=== PATIENT | female | born 1985 | race Caucasian/White ===

== ENCOUNTER 2016-10-26 07:20 | Inpatient (IN) | payer OTHER ==
[2016-10-26] MEDS ORDERED: DEXTROSE 5%-LACTATED RINGERS 1,000 ML IV SCH (08:30)
[2016-10-26] MEDS ORDERED: OXYTOCIN 15 UNITS/ LR 250 ML 250 ML IVPB SCH (08:30)
[2016-10-26] MEDS ORDERED: PROMETHAZINE HCL 25 MG/1 ML VIAL IVPUSH PRN (09:09)
[2016-10-26] MEDS ORDERED: BUTORPHANOL TARTRATE 1 MG/ML VIAL IVPB PRN (09:09)
[2016-10-26 09:13] VITALS: BMI 37.2
[2016-10-26 09:19] LABS: BASOPHIL 0.2 % (0-2.0); MCH 28.8 pg (25.7-33.7); MCHC 33.7 g/dl (32.0-36.0); MEAN CELL VOLUME 85.5 fl (80-96); MEAN PLT VOLUME 7.1 fl (7.5-11.1); NEUTROPHILS 72.2 % (42.8-82.8); PLATELET COUNT 199 K/MM3 (134-434); RDW 15.4 % (11.6-15.6); WHITE BLOOD COUNT 12.4 K/mm3 (4.0-10.0)
--- NOTE | 2016-10-26 09:24 | HP ---
Past Medical History - Primary Care Physician PCP:: Ana Rae - Admission Chief Complaint: 31 yrs , 41.1 weeks iup SROM since 6.00am . c/o cramps. postterm pregn monitored by NST reactive & BPP on 10/25/16 (Report 41 wks, 81%tile, EFW 3795gm=8'6', Shweta 13.07, Bpp8/8 ) History of Present Illness: PNC transferred from [facility] to [address] [place] [address] at 21 weeks gestation . wt gain 30 lbs work up : B Pos, Rpr nr, Hbsag neg, Rubella immune, Quantiferon neg, Hiv neg: , Pngt 115, Gbs neg , pap NILM . Sono By MFM were done for growth course uneventful History Source: Patient, Medical Record Limitations to Obtaining History: No Limitations - Past Medical History CONTENT COORDINATOR: No: Migraine, Seizure Cardiovascular: No: HTN, Murmur Pulmonary: No: Asthma Gastrointestinal: No: Hemorrhoids Renal/: No: UTI Reproductive: Yes: Ectopic (2004) ...: 7 ...Para: 2 ...Term: 1 (11/03/07 41 wks, Induction of labor, 8'9') ...: 1 (08/09/04 32 wks 2'2' ) ...Spon : 1 ...Induced : 3 (last ab 2015) ...LMP: 01/11/16 ... Weeks Gestation by Dates: 41.2 ...EDC by Dates: 10/17/16 ...EDC by Sono: 10/18/16 Heme/Onc: Yes: Anemia. No: Sickle Cell Trait Infectious Disease: No: HIV, STD's Psych: No: Addictions, Anxiety, Bipolar, Depression Endocrine: No: Diabetes Mellitus, Hyperthyroidism, Hypothyroidism - Past Surgical History Past Surgical History: Yes: None Hx Myomectomy: No Hx Transabdominal Cerclage: No - Smoking History Smoking history: Never smoked Have you smoked in the past 12 months: No - Alcohol/Substance Use Hx Alcohol Use: No Home Medications - Allergies Allergies/Adverse Reactions: Allergies Allergy/AdvReac Type Severity Reaction Status Date / Time No Known Allergies Allergy Verified 03/02/16 05:40 - Home Medications Home Medications: Ambulatory Orders Vitamins (Sjr) - 1 tab PO DAILY 10/22/16 Physical Exam - Maternity Vital Signs: Vital Signs Temperature 97.8 F 10/26/16 09:00 Pulse Rate 88 10/26/16 09:00 Respiratory Rate 20 10/26/16 09:00 Blood Pressure 122/60 10/26/16 09:00 O2 Sat by Pulse Oximetry (%) Selected Entries 10/26/16 08:32 Weight 210 lb Constitutional: Yes: Well Nourished, No Distress, Calm, Obese Eyes: Yes: WNL HENT: Yes: WNL, Normocephalic Neck: Yes: WNL Cardiovascular: Yes: WNL Lungs: Clear to auscultation Breast(s): Yes: WNL - Abdominal Exam/OB Fundal Height: 40 Number of Fetuses: Single Presentation: Vertex Contractions: Yes Regularity: Irregular Intensity: Unaware Monitor Mode: External Heart Rate (range): 140-150 Heart Rate Location: Midline Category: I Accelerations: Uniform Decelerations: None - Vaginal Exam/OB Vaginal Bleediing: No Speculum Exam: No Dilatation (cm): 4 Effacement (%): 60 Amniotic Membrane Status: Ruptured (at 6.00am 10/26/16) Nitrazine Test: Positive Amniotic Fluid: Yes: Meconium Stained Meconium: Light Presentation: Vertex/Position (exam at 8.30 am) Station: -3 - Physical Exam Musculoskeletal: Yes: WNL Extremities: Yes: WNL. No: Calf Tenderness Edema: Yes Edema: LLE: 1+, RLE: 1+ Integumentary: Yes: Tattoos Deep Tendon Reflex Grade: Normal +2 ...Motor Strength: WNL Psychiatric: Yes: WNL, Alert, Oriented - Labs Lab Results: Laboratory Tests 10/26/16 10/26/16 10/26/16 09:05 09:05 09:05 WBC 12.4 H Hgb 12.2 Hct 36.3 Plt Count 199 Neutrophils % 72.2 D Lymphocytes % 17.3 D Monocytes % 7.3 INR 0.98 PTT (Actin FS) 26.9 Sodium 139 Potassium 3.7 Chloride 108 H Carbon Dioxide 20 L D BUN 7 D Creatinine 0.7 Random Glucose 135 H D Calcium 8.8 RPR Titer 10/26/16 09:05 WBC Hgb Hct Plt Count Neutrophils % Lymphocytes % Monocytes % INR PTT (Actin FS) Sodium Potassium Chloride Carbon Dioxide BUN Creatinine Random Glucose Calcium RPR Titer Nonreactive Laboratory Tests 10/26/16 09:05 Blood Type B POSITIVE Antibody Screen Negative Problem List - Problems (1) Post term at 41 weeks gestation Code(s): O48.0 - POST-TERM Z3A.41 - 41 WEEKS GESTATION OF (2) SROM (spontaneous rupture of membranes) Code(s): WKN3897 - Assessment/Plan 31 yrs , 41.1 wks gestation , srom, light mec, Gbs neg Plan Pitocin augmentaion trial vaginal delivery
[2016-10-26 09:37] LABS: INR 0.98 (0.82-1.09); PROTHROMBIN TIME (PATIENT) 10.8 SEC (9.98-11.88)
[2016-10-26 09:40] LABS: ACTIVATED PTT 26.9 SECONDS (26.9-34.4)
[2016-10-26 09:47] LABS: CALCIUM 8.8 mg/dL (8.5-10.1); CREATININE 0.7 mg/dL (0.55-1.02)
--- NOTE | 2016-10-26 13:01 | PN ---
Progress Note, Labor Vaginal Exam #1 Labor Exam Date: 10/26/16 Labor Exam Time: 12:45 Heart Rate (range): 150 Dilatation: 4-5 Effacement (%): 80 Amniotic Membrane Status: Ruptured (light meconium) Presentation: Vertex/Position Station: -2 Remarks: uc irregular, mild to moderate FHR cat-1 Pitocin augmentation was started at 8.30am,presently 9miu/hr Selected Entries 10/26/16 12:00 Temperature 98.1 F Pulse Rate 78 Blood Pressure 122/57 Vaginal Exam #2 Labor Exam Date: 10/26/16 Labor Exam Time: 13:30 Heart Rate (range): 140 Dilatation: 5 Effacement (%): 90 Amniotic Membrane Status: Ruptured Presentation: Vertex/Position Station: -1 (-1/0) Remarks: fhr cat-1 uc q 2 -3 min pt requests for pain meds, rx stadol +phenrgan iv given Vaginal Exam #3 Labor Exam Date: 10/26/16 Labor Exam Time: 14:57 Heart Rate (range): 140 Dilatation: 8 Effacement (%): 100 Amniotic Membrane Status: Ruptured Presentation: Vertex/Position Station: +1 Remarks: cat-1 uc q2 min Selected Entries 10/26/16 10/26/16 14:00 15:00 Temperature 98.1 F Pulse Rate 76 82 Blood Pressure 129/68 127/70 Vaginal Exam #4 Labor Exam Date: 10/26/16 Labor Exam Time: 15:08 Heart Rate (range): 140 Dilatation: 10 Effacement (%): 100 Amniotic Membrane Status: Ruptured Presentation: Vertex/Position Station: +2 (+2/+3) Remarks: pt pushing
[2016-10-26 15:46] LABS: ARTERIAL BLOOD GAS BASE EXCESS -3.4 meq/l (-2-2); ARTERIAL BLOOD GAS HCO3 23.7 meq/L (22-26); ARTERIAL BLOOD GAS PO2 24.3 mmHg (80-100)
[2016-10-26 15:48] LABS: ARTERIAL BLOOD GAS pH 7.27 (7.35-7.45); LPM/O2% 21%; PT. ON O2? NO
[2016-10-26 15:49] LABS: ARTERIAL BLD GAS O2 SATURATION 80.4 % (90-98.9); ARTERIAL BLOOD GAS BASE EXCESS -3.6 meq/l (-2-2); ARTERIAL BLOOD GAS HCO3 20.9 meq/L (22-26); ARTERIAL BLOOD GAS PO2 39.7 mmHg (80-100)
[2016-10-26 15:50] LABS: ARTERIAL BLOOD GAS pH 7.36 (7.35-7.45); LPM/O2% 21%; PT. ON O2? NO
[2016-10-26] MEDS ORDERED: BISACODYL 10 MG SUPP.RECT RC PRN (16:13)
[2016-10-26] MEDS ORDERED: oxyCODONE HCL 5 MG TABLET PO PRN (16:13)
[2016-10-26] MEDS ORDERED: WITCH HAZEL 50% (TUCKS) 40 PAD/JAR PAD TP PRN (16:13)
[2016-10-26] MEDS ORDERED: METHYLERGONOVINE MALEATE 0.2 MG/1 ML AMP IM PRN (16:13)
[2016-10-26] MEDS ORDERED: BENZOCAINE 20% 57 GM BOTTLE TP PRN (16:13)
[2016-10-26] MEDS ORDERED: BENZOCAINE 28 GM HEMORRHOIDAL OINTMENT TP PRN (16:13)
[2016-10-26] MEDS ORDERED: D5W-LR W/ 20 UNITS OXYTOCIN 1,000 ML IV SCH (16:15)
--- NOTE | 2016-10-26 16:23 | PN ---
Delivery - Delivery Vaginal Delivery: No Problems, Spontaneous (tight cord around the neck, clamped & cut before the delivery of ant shoulder) Type of Anesthesia: None Episiotomy/Laceration: None EBL (cc): 300 Delivery, Single - Stages of Labor Date 1st Stage Initiatied: 10/26/16 Time 1st Stage Initiated: 06:00 Date 2nd Stage Initiated: 10/26/16 Time 2nd Stage Initiated: 15:05 Date of Delivery: 10/26/16 Time of Delivery: 15:16 Time Placenta Delivered: 15:30 Placenta: Yes: Spontaneous, Uterine Exploration - Condition of Infant Freight Unloader/Valance Cutter Present: No Infant Gender: Female Weight: 8 lb 5 oz Position: Left, OA Total Hours ROM (Hrs/Mins): 9/30 - 1 Minute Total Score: 9 5 Minutes Total Score: 9 - [place] Feeding Plan Initial Plan: Exclusive throughout hospitalization Remarks - Remarks Remarks: 31 yrs 41.1 weeks gestation presented with Srom . Gbs neg. Pnc wtw & 2, [facility] pitocin augmentation was started Iv stadol + phenergan was given for labor anlgesia Intra course was uneventful.
[2016-10-26] MEDS: IBUPROFEN 600 MG TABLET (FP) PO PRN (17:12)
[2016-10-26] MEDS: FERROUS SO4 325 MG TABLET (FP) PO SCH (17:12)
[2016-10-27 07:08] LABS: BASOPHIL 0.4 % (0-2.0); EOSINOPHIL 2.6 % (0-4.5); MCH 28.7 pg (25.7-33.7); MCHC 33.4 g/dl (32.0-36.0); MEAN PLT VOLUME 7.3 fl (7.5-11.1); NEUTROPHILS 67.5 % (42.8-82.8); PLATELET COUNT 153 K/MM3 (134-434); RDW 15.8 % (11.6-15.6); WHITE BLOOD COUNT 14.2 K/mm3 (4.0-10.0)
[2016-10-27] MEDS: FERROUS SO4 325 MG TABLET (FP) PO SCH ×2 (08:00→18:33)
--- NOTE | 2016-10-27 08:33 | PN ---
Post Progress Note - Subjective Subjective: doing well, sitting up with baby, minimal lochia Post Day: 1 Type of Delivery: Vital Signs: Vital Signs Temperature 98.8 F 10/27/16 05:00 Pulse Rate 84 10/27/16 05:00 Respiratory Rate 18 10/27/16 05:00 Blood Pressure 118/67 10/27/16 05:00 O2 Sat by Pulse Oximetry (%) 96 10/26/16 21:00 Breast Exam: No: Soft, Engorged, Cracked Nipples, Other Uterus: Yes: Fundus Firm Abdomen/GI: Yes: Abdomen soft Lochia: Yes: Rubra Lochia, amount: Small Extremities: Yes: Calves non-tender Activity: Ambulating - Labs Labs: CBC WBC 14.2 K/mm3 (4.0-10.0) H 10/27/16 06:00 RBC 3.54 M/mm3 (3.60-5.2) L 10/27/16 06:00 Hgb 10.2 GM/dL (10.7-15.3) L D 10/27/16 06:00 Hct 30.4 % (32.4-45.2) L D 10/27/16 06:00 MCV 86.0 fl (80-96) 10/27/16 06:00 MCHC 33.4 g/dl (32.0-36.0) 10/27/16 06:00 RDW 15.8 % (11.6-15.6) H 10/27/16 06:00 Plt Count 153 K/MM3 (134-434) D 10/27/16 06:00 MPV 7.3 fl (7.5-11.1) L 10/27/16 06:00 Neutrophils % 67.5 % (42.8-82.8) 10/27/16 06:00 Lymphocytes % 21.3 % (8-40) D 10/27/16 06:00 Monocytes % 8.2 % (3.8-10.2) 10/27/16 06:00 Eosinophils % 2.6 % (0-4.5) 10/27/16 06:00 Basophils % 0.4 % (0-2.0) 10/27/16 06:00 Assessment/Plan oob cbc stable pain meds prn reg diet
[2016-10-27] MEDS: ACETAMINOPHEN 325 MG TABLET (FP) PO PRN ×3 (11:05→21:53)
[2016-10-27] MEDS: PRENATAL VITAMINS W/ FOLIC ACID TABLET (FP) PO SCH (11:05)
[2016-10-27] MEDS: IBUPROFEN 600 MG TABLET (FP) PO PRN ×3 (11:06→21:54)
[2016-10-27] MEDS ORDERED: SENNOSIDES/DOCUSATE COMBO (SENNA PLUS) TABLET (UD) PO PRN (22:00)
--- NOTE | 2016-10-28 07:07 | PN ---
Progress Note (short form) - Note Progress Note: ppd 1 doing well, no c/o CBC, BMP 10/27/16 06:00 10/26/16 09:05 Last Vital Signs Temp Pulse Resp BP Pulse Ox 98.5 F 79 18 138/72 96 10/27/16 22:00 10/27/16 22:00 10/27/16 22:00 10/27/16 22:00 10/26/16 21:00 uterus firm, non tender, no cva lochia mild no calf tenderness plan d/c home follow up h care4 weeks
[2016-10-28] MEDS: PRENATAL VITAMINS W/ FOLIC ACID TABLET (FP) PO SCH (09:34)
[2016-10-28] MEDS: FERROUS SO4 325 MG TABLET (FP) PO SCH (09:34)
[2016-10-28 10:14] VITALS: BP 131/71; PULSE 87; TEMP 98
--- NOTE | 2016-10-28 17:22 | DS ---
Physical Exam-KITCHEN AND COUNTER WORKER Vital Signs: Vital Signs Temperature 98 F 10/28/16 10:00 Pulse Rate 87 10/28/16 10:00 Respiratory Rate 20 10/28/16 10:00 Blood Pressure 131/71 10/28/16 10:00 O2 Sat by Pulse Oximetry (%) 96 10/26/16 21:00 Constitutional: Yes: Well Nourished Eyes: Yes: WNL HENT: Yes: WNL Neck: Yes: WNL Cardiovascular: Yes: WNL Respiratory: Yes: WNL Gastrointestinal: Yes: WNL ...Rectal Exam: Yes: WNL Renal/: Yes: CVA Tenderness - Right ....Post : Yes: Uterus firm, Uterus non-tender, Moderate lochia rubra ( perineum intact) Breast(s): Yes: WNL (BF) Musculoskeletal: Yes: WNL Extremities: Yes: WNL. No: Calf Tenderness Edema: Yes Edema: LLE: 1+, RLE: 1+ Neurological: Yes: WNL, Alert, Oriented ...Motor Strength: WNL Psychiatric: Yes: WNL, Alert, Oriented Labs: CBC, BMP 10/27/16 06:00 10/26/16 09:05 Delivery - Delivery Vaginal Delivery: No Problems, Spontaneous (tight cord around the neck, clamped & cut before the delivery of ant shoulder) Type of Anesthesia: None Episiotomy/Laceration: None EBL (cc): 300 Delivery, Single - Stages of Labor Date 1st Stage Initiatied: 10/26/16 Time 1st Stage Initiated: 06:00 Date 2nd Stage Initiated: 10/26/16 Time 2nd Stage Initiated: 15:05 Date of Delivery: 10/26/16 Time of Delivery: 15:16 Time Placenta Delivered: 15:30 Placenta: Yes: Spontaneous, Uterine Exploration - Condition of Infant Certified Mortician/Regulatory Affairs Consultant Present: No Infant Gender: Female Weight: 8 lb 5 oz Position: Left, OA Total Hours ROM (Hrs/Mins): 9/30 - 1 Minute Total Score: 9 5 Minutes Total Score: 9 - Feeding Plan Initial Plan: Exclusive throughout hospitalization Remarks - Remarks Remarks: 31 yrs 41.1 weeks gestation presented with Srom . Gbs neg. Pnc wtw & 2, [facility] pitocin augmentation was started Iv stadol + phenergan was given for labor anlgesia Intra course was uneventful.. pp course uneventful. discharge today Discharge Summary Reason For Visit: LABOR Current Active Problems Normal spontaneous vaginal delivery (Acute) Post term at 41 weeks gestation (Acute) SROM (spontaneous rupture of membranes) (Acute) Condition: Stable - Instructions Diet, Activity, Other Instructions: Post Instructions DIET: Continue good diet high in protein, calcium, and iron rich foods. Drink at least eight (8) glasses of water daily in addition to other fluids. ct Regular diet MEDICATIONS: Continue vitamins and iron as previously directed. Motrin and Tylenol may be taken for minor discomfort. ACTIVITY: Mild to moderate exercise may be started in two (2) weeks. Take frequent rest periods. Resume normal activity after six (6) week check up. WOUND CARE OF OPERATIVE SITE: Continue use of perineal bottle until vaginal discharge stops. Keep area clean. Shower daily. Keep abdominal wound dry. Report any drainage or redness to physician. Tub baths, tampons and douches are not permitted for [address] Breast feeding 0r Bottle feeding BREAST CARE: (For those that are not breast feeding): If engorgement occurs: Wear tight fitting bra. Take Tylenol or Motrin for pain. Apply cold packs (ice in bags to each breast ) FAMILY PLANNING: There are many control alternatives to pursue and they should be discussed at your first office visit. You may resume sexual activity after your six (6) week check up. (Remember, breast feeding is not a contraceptive) NEXT PHYSICIAN APPOINTMENT: Be certain to call for a six (6) week appointment, unless otherwise directed. Call Clinic or got to Emergency Dept if you have any of the following: Heavy vaginal bleeding Painful urination Leg pain Unusual odor noted to vaginal bleeding High fever Red streaking noted on breast Referrals: Ana Rae MD [Staff Physician] - Disposition: HOME - Home Medications Comprehensive Discharge Medication List: Ambulatory Orders Vitamins (Sjr) - 1 tab PO DAILY 10/22/16 Acetaminophen [Tylenol .Regular Strength -] 650 mg PO Q3H PRN #0 tablet Ferrous Sulfate [Feosol] 325 mg PO BIDWM ud 10/27/16 Ibuprofen [Motrin -] 200 mg PO Q4H PRN #0 tablet 10/27/16 Vitamins (Sjr) - 1 tab PO DAILY tablet 10/27/16
== END 2016-10-28 12:00 | disposition home or self-care (01) | DRG 560 ==
LOC: JDEL 07:20 → JLDR 08:20 → J3W 16:30
PROVIDERS: ADMIT Obstetrics & Gynecology; ATTEND Obstetrics & Gynecology
PROC: 10E0XZZ Delivery of Products of Conception, External Approach (ICD-10-PCS; principal; 2016-10-26)
DX: O48.0 Post-term pregnancy (principal); Z3A.41 41 weeks gestation of pregnancy; O69.1XX0 Labor and delivery complicated by cord around neck, with compression, not applicable or unspecified; Z37.0 Single live birth
CPT/HCPCS: 36415; 36600; 59409; 80048; 82803; 85025; 85610; 85730; 86593; 86850; 86900; 86901

== ENCOUNTER 2021-05-23 15:16 | Inpatient (IN) | payer OTHER ==
[2021-05-23 15:33] VITALS: BMI 33.6
[2021-05-23 16:30] LABS: BASO % 0.6 % (0-2.0); EOS % 4.9 % (0-4.5); HEMATOCRIT 35.2 % (32.4-45.2); HEMOGLOBIN 12.1 GM/dL (10.7-15.3); LYMPH % 34.6 % (8-40); MCH 31.1 pg (25.7-33.7); MCHC 34.3 g/dl (32.0-36.0); MEAN CELL VOLUME 90.7 fl (80-96); MEAN PLT VOLUME 6.6 fl (7.5-11.1); MONO % 7.1 % (3.8-10.2); NEUT % 52.8 % (42.8-82.8); PLATELET COUNT 332 10^3/uL (134-434); RBC 3.88 M/mm3 (3.60-5.2); RDW 13.3 % (11.6-15.6)
[2021-05-23] MEDS ORDERED: LACTATED RINGERS SOLUTION 1000 ML INFUS.BAG IV ONE ×2 (16:36→20:42)
[2021-05-23 16:39] LABS: PROTHROMBIN TIME (PATIENT) 12.3 SEC (9.7-13.0)
[2021-05-23 16:42] LABS: ACTIVATED PTT 27.5 SECONDS (25.2-36.5)
[2021-05-23 16:56] LABS: CALCIUM 8.4 mg/dL (8.5-10.1)
[2021-05-23 16:57] LABS: ALBUMIN 3.5 g/dl (3.4-5.0); BLOOD UREA NITROGEN 12.8 mg/dL (7-18)
[2021-05-23 17:00] LABS: CREATININE 0.9 mg/dL (0.55-1.3)
[2021-05-23 17:02] LABS: BILIRUBIN,TOTAL 0.2 mg/dL (0.2-1); TOT PROT 7.2 g/dl (6.4-8.2)
[2021-05-23] MEDS: OXYTOCIN 20 UNITS in 0.9% NS 1000 ML INFUS.BAG IV ONE (18:27)
[2021-05-23 20:06] LABS: BASO % 0.7 % (0-2.0); EOS % 1.6 % (0-4.5); HEMATOCRIT 28.7 % (32.4-45.2); HEMOGLOBIN 10.1 GM/dL (10.7-15.3); LYMPH % 20.1 % (8-40); MCH 31.9 pg (25.7-33.7); MCHC 35.1 g/dl (32.0-36.0); MEAN CELL VOLUME 90.8 fl (80-96); MEAN PLT VOLUME 6.8 fl (7.5-11.1); MONO % 4.1 % (3.8-10.2); NEUT % 73.5 % (42.8-82.8); PLATELET COUNT 447 10^3/uL (134-434); RBC 3.16 M/mm3 (3.60-5.2); RDW 13.3 % (11.6-15.6); WHITE BLOOD COUNT 18.8 K/mm3 (4.0-10.0)
[2021-05-23] MEDS ORDERED: IBUPROFEN 600 MG TABLET (FP) PO ONE ×2 (21:02→21:34)
[2021-05-23 22:41] LABS: BASO % 0.4 % (0-2.0); EOS % 1.4 % (0-4.5); HEMOGLOBIN 8.3 GM/dL (10.7-15.3); MCH 31.1 pg (25.7-33.7); MCHC 34.5 g/dl (32.0-36.0); MEAN CELL VOLUME 90.2 fl (80-96); MEAN PLT VOLUME 6.7 fl (7.5-11.1); NEUT % 72.2 % (42.8-82.8); PLATELET COUNT 341 10^3/uL (134-434); RBC 2.66 M/mm3 (3.60-5.2); RDW 13.3 % (11.6-15.6); WHITE BLOOD COUNT 13.8 K/mm3 (4.0-10.0)
[2021-05-23] MEDS ORDERED: LACTATED RINGERS SOLUTION 1000 ML INFUS.BAG IV STA (22:56)
[2021-05-23] MEDS ORDERED: LACTATED RINGERS SOLUTION 1,000 ML IV SCH (23:45)
[2021-05-23] MEDS ORDERED: ONDANSETRON 4 MG/2 ML VIAL IVPUSH PRN (23:50)
[2021-05-24] MEDS ORDERED: PROPOFOL 20 ML ONE ×2 (00:02)
[2021-05-24] MEDS ORDERED: SUCCINYLCHOLINE CHLORIDE 200 MG/10 ML SYRINGE ONE (00:02)
[2021-05-24] MEDS ORDERED: ceFAZolin SODIUM 1 GM VIAL IVPB ONE (00:14)
[2021-05-24] MEDS ORDERED: IBUPROFEN 800 MG/8 ML IJ IVPB PRN (00:25)
[2021-05-24] MEDS ORDERED: oxyCODONE HCL 5 MG TABLET PO PRN (00:25)
[2021-05-24] MEDS ORDERED: ONDANSETRON 4 MG/2 ML VIAL IVPUSH PRN (00:25)
[2021-05-24] MEDS ORDERED: IBUPROFEN 600 MG TABLET (FP) PO PRN (00:25)
[2021-05-24] MEDS ORDERED: OXYTOCIN 20 UNITS in 0.9% NS 20 UNIT/1,000 ML INFUS.BAG IV SCH (00:30)
[2021-05-24] MEDS ORDERED: ELECTROLYTE-148 SOLN 1,000 ML IV SCH (00:30)
[2021-05-24] MEDS ORDERED: OXYTOCIN 10 UNITS/ML VIAL ONE (00:51)
[2021-05-24] MEDS: OXYTOCIN 20 UNITS in 0.9% NS 1000 ML INFUS.BAG IV ONE (01:20)
[2021-05-24 06:26] VITALS: BP 97/55; PULSE 81
[2021-05-24 07:42] LABS: HEMATOCRIT 29.3 % (32.4-45.2); HEMOGLOBIN 10.5 GM/dL (10.7-15.3); MCH 31.3 pg (25.7-33.7); MCHC 35.7 g/dl (32.0-36.0); MEAN CELL VOLUME 87.6 fl (80-96); MEAN PLT VOLUME 6.7 fl (7.5-11.1); PLATELET COUNT 274 10^3/uL (134-434); RBC 3.35 M/mm3 (3.60-5.2); RDW 13.4 % (11.6-15.6); WHITE BLOOD COUNT 10.5 K/mm3 (4.0-10.0)
[2021-05-24 08:45] VITALS: TEMP 98.6
== END 2021-05-24 13:30 | disposition home or self-care (01) | DRG 544 ==
LOC: JER 15:16 → JERBED 20:58 → OBSVTOIN 20:58 → J3W 22:49
PROVIDERS: ADMIT Obstetrics & Gynecology; ATTEND Obstetrics & Gynecology
PROC: 10D17ZZ Extraction of Products of Conception, Retained, Via Natural or Artificial Opening (ICD-10-PCS; principal; 2021-05-23 23:44)
DX: O03.4 Incomplete spontaneous abortion without complication (principal); D50.9 Iron deficiency anemia, unspecified
CPT/HCPCS: 36415; 36430; 76817-TC; 80053; 84702; 85025; 85027; 85610; 85730; 86850; 86900; 86901; 86922; 88305-TC; 94760; 99285-25; C9803; P9058; U0003; U0005

== ENCOUNTER 2023-08-30 21:29 | Emergency (ER) | payer OTHER ==
[2023-08-30 21:51] VITALS: BP 135/95; PULSE 77; RESP 20; TEMP 98; BMI 29.2
[2023-08-30] MEDS ORDERED: METHOCARBAMOL 750 MG TABLET PO ONE (23:01)
[2023-08-30] MEDS ORDERED: KETOROLAC TROMETHAMINE 30 MG/1 ML VIAL IM ONE (23:01)
[2023-08-30] MEDS ORDERED: METHOCARBAMOL 500 MG TABLET ONE (23:11)
[2023-08-30] MEDS ORDERED: KETOROLAC TROMETHAMINE 30 MG/1 ML VIAL ONE (23:11)
== END 2023-08-30 23:20 | disposition home or self-care (01) ==
LOC: JER 21:29
PROC: 3E0233Z Introduction of Anti-inflammatory into Muscle, Percutaneous Approach (ICD-10-PCS; principal; 2023-08-30)
DX: S13.4XXA Sprain of ligaments of cervical spine, initial encounter (principal); M54.2 Cervicalgia; R20.0 Anesthesia of skin; R10.9 Unspecified abdominal pain; V49.50XA Passenger injured in collision with unspecified motor vehicles in traffic accident, initial encounter; Y92.410 Unspecified street and highway as the place of occurrence of the external cause
CPT/HCPCS: 99284-25

== ENCOUNTER 2024-01-18 21:30 | Emergency (ER) | payer OTHER ==
[2024-01-18 21:39] VITALS: BP 130/92; PULSE 60; RESP 20; TEMP 98.6; BMI 28.3
[2024-01-18] MEDS ORDERED: MAG HYDROX/AL HYDROX/SIMETH 30 ML UNIT-DOSE CUP ONE (23:15)
[2024-01-18] MEDS ORDERED: FAMOTIDINE 20 MG TABLET ONE (23:15)
[2024-01-18] MEDS: MAG HYDROX/AL HYDROX/SIMETH 30 ML UNIT-DOSE CUP PO ONE (23:17)
[2024-01-18] MEDS: FAMOTIDINE 20 MG TABLET PO ONE (23:17)
== END 2024-01-18 23:51 | disposition home or self-care (01) ==
LOC: JER 21:30
DX: R10.9 Unspecified abdominal pain (principal); K29.70 Gastritis, unspecified, without bleeding
CPT/HCPCS: 99283-25